=== PATIENT | female | born 1985 | race Hispanic/Latino ===

== ENCOUNTER 2021-04-20 13:03 | Emergency (ER) | payer OTHER ==
[~2021-04-20] VITALS: Ht 167.6 cm; Wt 103.4 kg
[2021-04-20 14:15] VITALS: BP 135/72
[2021-04-20 14:26] VITALS: BP 159/102
[2021-04-20 14:36] LABS: BILIRUBIN,URINE NEGATIVE (NEGATIVE); UROBILINOGEN,URINE 0.2 E.U./dL (0.2)
--- NOTE | 2021-04-20 16:06 | ER.PDOC ---
General Chief Complaint: Female Urogenital Problems Stated Complaint: BACK PAIN/FEMALE /PAIN BOTH LEGS Time seen by MD: 14:26 Source: patient Exam Limitations: no limitations History of Present Illness Initial Comments This is a 36-year-old female who comes to the emergency department with flank pain bilaterally goes down her legs. She also has a headache and weakness and has had urinary frequency for the past 4-5 times she has had a urinary urinated. This morning she states she could not urinate. Allergies: Coded Allergies: No Known Allergies (Unverified , 04/20/21) Vital Signs First Vital Signs Date Time Temp Pulse Resp B/P (MAP) Pulse Ox O2 Delivery O2 Flow Rate FiO2 04/20/21 14:15 100.2 94 18 04/20/21 14:15 97 04/20/21 14:26 159/102 (121) Room Air Last Vital Signs Date Time Temp Pulse Resp B/P (MAP) Pulse Ox O2 Delivery O2 Flow Rate FiO2 04/20/21 14:26 100.2 94 18 159/102 (121) 97 Room Air Past Medical History Medical History: no pertinent history Surgical History: no surgical history Social History Alcohol Use: none Drug Use: none Constitutional: denies no symptoms reported, denies see HPI, denies chills, denies diaphoresis, denies fever, denies malaise, denies weakness, denies other EENTM: denies no symptoms reported, denies see HPI, denies eye pain, denies blurred vision, denies tearing, denies double vision, denies ear pain, denies ear discharge, denies nose pain, denies nose congestion, denies throat pain, denies throat swelling, denies mouth pain, denies mouth swelling, denies other Respiratory: denies no symptoms reported, denies see HPI, denies cough, denies orthopnea, denies shortness of breath, denies SOB with exertion, denies SOB at rest, denies stridor, denies wheezing, denies other Cardiovascular: denies no symptoms reported, denies see HPI, denies chest pain, denies edema, denies irregular heart rate, denies lightheadedness, denies palpitations, denies syncope, denies other Gastrointestinal: denies no symptoms reported, denies see HPI, denies abdomen distended, denies abdominal pain, denies blood streaked bowels, denies constipated, denies diarrhea, denies difficulty swallowing, denies nausea, denies poor appetite, denies poor fluid intake, denies rectal bleeding, denies vomiting, denies other Genitourinary: denies no symptoms reported, denies see HPI; burning, dysuria; denies discharge; frequency; denies flank pain, denies hematuria, denies incontinence, denies pain, denies urgency, denies other Musculoskeletal: denies no symptoms reported, denies see HPI, denies back pain, denies gout, denies joint pain, denies joint swelling, denies muscle pain, denie s muscle stiffness, denies neck pain, denies other Skin: denies no symptoms reported, denies see HPI, denies change in color, denies change in hair/nails, denies dryness, denies lesions, denies lumps, denies rash, denies other Psychiatric/Neurological: denies no symptoms reported, denies see HPI, denies anxiety, denies depressed, denies emotional problems, denies headache, denies numbness, denies paresthesia, denies pre-existing deficit, denies seizure, denies tingling, denies tremors, denies weakness, denies other Endocrine: denies no symptoms reported, denies see HPI, denies excessive sweating, denies flushing, denies intolerance to cold, denies intolerance to heat, denies increased hunger, denies increased thrist, denies increased urine, denies unexplained weight gain, denies unexplaned weight loss, denies other Hematologic/Lymphatic: denies no symptoms reported, denies see HPI, denies anemia, denies blood clots, denies easy bleeding, denies easy bruising, denies swollen glands, denies other All Other Systems: Reviewed and Negative Physical Exam General Appearance: No Apparent Distress, WD/WN, Obese HEENT: PERRL/EOMI, Normal ENT Inspection, TMs Normal, Pharynx Normal Neck: Non-Tender, Full Range of Motion, Supple, Normal Inspection Respiratory: chest non-tender, lungs clear, normal breath sounds, no re spiratory distress, no accessory muscle use Cardiovascular: Normal Peripheral Pulses, Regular Rate, Rhythm, No Edema, No Gallop, No JVD, No Murmur Gastrointestinal: Normal Bowel Sounds, Non Tender, Soft Pelvic: Normal External Exam, Normal Adnexa, No Cerv. Motion Tender, No Masses Male Genitalia: Normal Genitalia, Normal Prostate, No Hernia Rectal: Normal Exam Back: Normal Inspection, No CVA Tenderness, No Vertebral Tenderness Extremities: Normal Range of Motion, Non-Tender, Normal Inspection, No Pedal Edema, No Calf Tenderness, Normal Capillary Refill, Pelvis Stable Neurologic/Psychiatric: competitive shopper II-XII NML as Tested, No Motor/Sensory Deficits, Alert, Normal Mood/Affect, Oriented x 3 Skin: Normal Color, Warm/Dry Lymphatic: No Adenopathy Results/Orders Results/Orders Orders - MILAN PERRIN MD Urinalysis (04/20/21 14:29) Hcg Urine (04/20/21 14:29) Covid19 Antigen Loan Tesha (04/20/21 14:33) Vital Signs Date Time Temp Pulse Resp B/P (MAP) Pulse Ox O2 Delivery O2 Flow Rate FiO2 04/20/21 14:26 100.2 94 18 159/102 (121) 97 Room Air 04/20/21 14:15 100.2 94 18 97 04/20/21 14:15 100.2 94 18 Laboratory Tests Test 04/20/21 14:32 04/20/21 15:55 Urine Collection Type RANDOM Urine Color YELLOW Urine Appearance CLEAR Urine Bilirubin NEGATIVE (NEGATIVE) Urine Ketones TRACE (NEGATIVE) H Urine Specific [place] 1.020 (1.005-1.030) Urine pH 6.0 (4.5-8.0) Urine Protein NEGATIVE (NEGATIVE) Urine Urobilinogen 0.2 E.U./dL (0.2) Urine Nitrate NEGATIVE (NEGATIVE) Urine Leukocyte Esterase NEGATIVE (NEGATIVE) Urine Glucose (Auto)(UA) NEGATIVE (NEGATIVE) Urine Blood 1+ (NEGATIVE) H Urine RBC 2-5 RBC/HPF (NONE SEEN) Urine WBC 0-2 WBC/HPF (0-2) Urine Squamous Epithelial Cells MODERATE (<=FEW) Urine Bacteria NONE SEEN (NONE SEEN) Urine Mucus MANY (NONE SEEN) Urine HCG, Qualitative NEGATIVE (NEGATIVE) SARS-CoV-2 Antigen (Rapid) NEGATIVE (NEGATIVE) ER DEPART Departure Time of Disposition: 16:34 Disposition: 01 HOME / SELF CARE / HOMELESS Impression: Primary Impression: Flank pain Condition: Stable Patient Instructions: Flank Pain Referrals: PCP,UNKNOWN (PCP) PRIMARY CARE PROVIDER Additional Instructions: Drink plenty of fluids, take tramadol as needed for pain Duration or Time Spent with Pa: Unknown MILAN PERRIN MD Apr 20, 2021 16:06
[2021-04-20 16:35] VITALS: BP 140/89
== END 2021-04-20 16:46 | disposition home or self-care (01) ==
LOC: ER 13:03
DX: R10.9 Unspecified abdominal pain (principal); R51.9 Headache, unspecified; R53.1 Weakness; Z20.822 Contact with and (suspected) exposure to COVID-19
CPT/HCPCS: 81001; 81025; 87426; 99283